=== PATIENT | male | born 1945 | race Caucasian/White ===

== ENCOUNTER → 2020-08-22 | Outpatient (CLI) | payer OTHER ==
[~2020-08-22] MED LIST: AMARYL2 MG PO; ATORVASTATIN CA20 MG PO; AZATHIOPRINE50 MG PO; BETAPACE AF120 MG PO; FINASTERIDE5 MG PO; FOLIC ACID20 MG PO; IMDUR 30 MG TAB30 M1 PO; LOSARTAN-HCTZ1 EAC2 PO; METFORMIN HCL500 MG PO; MIRAPEX 0.250.25 M1 PO; OMEPRAZOLE40 MG PO; PROSCAR 5MG TABL5 MG PO; ROPINIROLE HCL2 MG PO; SULFASALAZINE500 M5 PO; XARELTO20 MG PO
== END ==
LOC: LAB 09:06
PROVIDERS: ATTEND Ophthalmology
DX: Z01.812 Encounter for preprocedural laboratory examination (principal); Z20.822 Contact with and (suspected) exposure to COVID-19

== ENCOUNTER 2020-08-25 06:52 | Day surgery (SDC) | payer OTHER ==
[~2020-08-25] VITALS: Ht 0.5 cm; Wt 92.5 kg
--- NOTE | ~2020-08-25 | O ---
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 PROCEDURE: Bilateral lower lid ectropion repair with bilateral transconjunctival lower lid and cheek lift. SURGEON: Tigre Murcia MD. DIRECTOR OF SCIENTIFIC RESEARCH: None. ANESTHESIA: MAC. COMPLICATIONS: None. INDICATIONS FOR SURGERY: This pleasant 75-year-old gentleman has bilateral lower lid ectropion. 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 This appears to be in part related to his obstructive sleep apnea and is dominant pattern of sleeping on his stomach. He presents today for a bilateral lower lid and cheek procedure in order to attempt to improve his ocular surface milieu, and improve his visual function and reduce his chronic ocular discharge. Informed consent was obtained to include, but not limited to the potential risk for loss of vision, bleeding, infection, failure to improve the problem, and the dramatically increased risk of recurrence if he continues to sleep on his stomach. DESCRIPTION OF PROCEDURE: The patient was taken to the operating room where 2% Xylocaine with epinephrine mixed with equal parts 0.75% Marcaine with Wydase was administered transcutaneously and transconjunctivally to each lower lid, lateral canthus, medial canthus, infratemporal fossa and cheek. The patient was subsequently prepped and draped in the usual sterile fashion. Attention was first turned to the left side. The lateral canthus was clamped with a Quiroz clamp. A sharp canthotomy and cantholysis was then performed. A [facility] [address] [place] [address] OPERATIVE REPORT Name: SARAH MCKEON Room #: 150-1 [facility]..#: [id number] Admission: 08/25/20 Attend Phys: Tigre Murcia MD Discharge: Date of : 41 Report #: [id number] tarsal strip was then prepared laterally removing the lash bearing portion of the redundant lid margin and the redundant tarsal plate. A double-ended punctum dilator was then used to dilate the inferior punctum, which dilated quite well. It appeared to be patent to the level of the common canaliculus. A transconjunctival incision was then made below the inferior border of the tarsal plate. Hemostasis was then re-achieved. The dissection was then carried out into the premalar tissues of the lower lid and cheek going through the lower lid retractors. These tissues were then elevated and resuspended with multiple interrupted passes of 5-0 chromic sutures correcting the lower lid retraction. The lower lid and cheek lifted well. The tarsal plate was then secured to the internal portion of the lateral orbital tubercle with interrupted 5-0 Prolene sutures. The subcutaneous structures and the skin were then closed with interrupted 6-0 plain gut sutures. The wounds were then cleaned and dressed with erythromycin ophthalmic ointment and the patient subsequently transported to the recovery area having tolerated the procedures well with no anesthetic or operative complications being noted. By: 0822 [id number] Tigre Murcia MD /nt
[2020-08-25 07:33] VITALS: BP 146/79
== END 2020-08-25 09:52 | disposition home or self-care (01) ==
LOC: OR 06:52 → TBA 06:52 → OR 09:06
PROVIDERS: ATTEND Ophthalmology
DX: H02.105 Unspecified ectropion of left lower eyelid (principal); H02.102 Unspecified ectropion of right lower eyelid; H02.535 Eyelid retraction left lower eyelid; H02.532 Eyelid retraction right lower eyelid; H02.205 Unspecified lagophthalmos left lower eyelid; H02.202 Unspecified lagophthalmos right lower eyelid; H18.9 Unspecified disorder of cornea; I10 Essential (primary) hypertension; E78.5 Hyperlipidemia, unspecified; G47.30 Sleep apnea, unspecified; F17.210 Nicotine dependence, cigarettes, uncomplicated; E11.9 Type 2 diabetes mellitus without complications; K21.9 Gastro-esophageal reflux disease without esophagitis; Z98.890 Other specified postprocedural states; Z79.899 Other long term (current) drug therapy; Z98.41 Cataract extraction status, right eye; Z98.42 Cataract extraction status, left eye; Z88.8 Allergy status to other drugs, medicaments and biological substances
CPT/HCPCS: 50010; 50101; 50386; 50398; 51636; 56527; 56531; 62110; 62850; 70005